=== PATIENT | female | born 1935 | race Caucasian/White ===

== ENCOUNTER 2017-10-15 09:58 | Observation (INO) | payer OTHER ==
[2017-10-15 10:26] LABS: BEDSIDE GLUCOSE 116 MG/DL (83-110)
[2017-10-15 11:21] LABS: BASO % 0.4 % (0.0-1.0); EOS # 0.1 10^3/uL (0.0-0.50); EOS % 1.2 % (0.0-3.0); HEMATOCRIT 40.2 % (36.0-47.0); HEMOGLOBIN 13.3 g/dl (12.0-15.5); IMMATURE GRANULOCYTE % 0.4 % (0-3.0); LYMPH % 19.1 % (24.0-44.0); MEAN CORPUSCULAR HGB CONC 33.1 g/dl (32.0-36.5); MEAN CORPUSCULAR VOLUME 90.7 fl (80.0-96.0); MONO # 0.7 10^3/uL (0.0-0.8); NEUTROPHILS # 3.4 10^3/uL (1.8-7.7); NEUTROPHILS % 65.9 % (36.0-66.0); PLATELET COUNT, AUTOMATED 216 10^3/uL (150-450); RED BLOOD COUNT 4.43 10^6/uL (4.00-5.40); RED CELL DISTRIBUTION WIDTH 15.1 % (11.5-14.5); WHITE BLOOD COUNT 5.2 10^3/uL (4.0-10.0)
[2017-10-15 11:42] LABS: ANION GAP 6 MEQ/L (8-16); BLOOD UREA NITROGEN 20 MG/DL (7-18); CARBON DIOXIDE LEVEL 27 MEQ/L (21-32); CHLORIDE LEVEL 108 MEQ/L (98-107); CPK CREATINE PHOSPHOKINASE 75 U/L (26-192); GLOMERULAR FILTRATION RATE 45.6 (>32); GLUCOSE, FASTING 113 MG/DL (70-100); MAGNESIUM LEVEL 2.1 MG/DL (1.8-2.4); POTASSIUM SERUM 4.2 MEQ/L (3.5-5.1); SODIUM LEVEL 141 MEQ/L (136-145); TROPONIN I < 0.02 NG/ML (< 0.10)
[2017-10-15 11:51] LABS: MB/CK RELATIVE INDEX 1.33 (< OR =4)
[2017-10-15 12:19] LABS: LACTIC ACID SEPSIS PROTOCOL 1.3 MMOL/L (0.4-2.0)
[2017-10-15] MEDS ORDERED: ONDANSETRON 4MG/2ML VIAL (J2405) IV (13:30)
[2017-10-15] MEDS ORDERED: ACETAMINOPHEN TAB 650MG DOSE (2X325MG) PO (13:30)
[2017-10-15] MEDS ORDERED: ATROPINE SULF 1MG/10ML SYRINGE (J0461) IV (14:45)
[2017-10-15 15:31] LABS: CPK CREATINE PHOSPHOKINASE 61 U/L (26-192); TROPONIN I < 0.02 NG/ML (< 0.10)
[2017-10-15 15:35] LABS: CK-MB VALUE MASS 1.1 NG/ML (<3.6)
[2017-10-15 15:37] LABS: FREE T3 2.5 PG/ML (2.2-4.0)
[2017-10-15 15:37] LABS: FREE T4 1.45 NG/DL (0.76-1.46)
[2017-10-15] MEDS: NS 1,000 ML IV (16:23)
[2017-10-15] MEDS: ALLOPURINOL 100 MG TAB PO (20:00)
[2017-10-15] MEDS: ASPIRIN 81 MG CHEW TABLET PO (20:00)
[2017-10-15] MEDS: hydrOXYzine 25 MG TAB PO (20:00)
[2017-10-15] MEDS: OMEPRAZOLE 20 MG CAP PO (20:00)
[2017-10-15] MEDS: HEPARIN SOD (PORCINE) 5000 UNITS/ML VIAL SC (20:01)
[2017-10-15 21:53] LABS: CPK CREATINE PHOSPHOKINASE 58 U/L (26-192); TROPONIN I < 0.02 NG/ML (< 0.10)
[2017-10-15 21:54] LABS: CK-MB VALUE MASS 1.2 NG/ML (<3.6); MB/CK RELATIVE INDEX 2.06 (< OR =4)
[2017-10-16] MEDS ORDERED: SLF 3 ML SYR IV (04:30)
[2017-10-16 05:58] LABS: HEMATOCRIT 36.8 % (36.0-47.0); HEMOGLOBIN 12.2 g/dl (12.0-15.5); MEAN CORPUSCULAR HGB CONC 33.2 g/dl (32.0-36.5); MEAN CORPUSCULAR VOLUME 90.4 fl (80.0-96.0); PLATELET COUNT, AUTOMATED 185 10^3/uL (150-450); RED BLOOD COUNT 4.07 10^6/uL (4.00-5.40); RED CELL DISTRIBUTION WIDTH 14.8 % (11.5-14.5); WHITE BLOOD COUNT 4.3 10^3/uL (4.0-10.0)
[2017-10-16] MEDS: LEVOTHYROXINE 75MCG TABLET (0.075MG) PO (06:03)
[2017-10-16] MEDS: SLF 3 ML SYR IV ×3 (06:03→20:05)
[2017-10-16 06:24] LABS: ALBUMIN 2.9 GM/DL (3.2-5.2); ALKALINE PHOSPHATASE 83 U/L (45-117); ALT/SGPT 16 U/L (12-78); ANION GAP 7 MEQ/L (8-16); AST/SGOT 16 U/L (7-37); BILIRUBIN,TOTAL 0.4 MG/DL (0.2-1.0); BLOOD UREA NITROGEN 19 MG/DL (7-18); CALCIUM LEVEL 8.1 MG/DL (8.8-10.2); CARBON DIOXIDE LEVEL 25 MEQ/L (21-32); CHLORIDE LEVEL 112 MEQ/L (98-107); CK-MB VALUE MASS < 1.0 NG/ML (<3.6); CPK CREATINE PHOSPHOKINASE 54 U/L (26-192); CREATININE FOR GFR 1.09 MG/DL (0.55-1.30); GLOMERULAR FILTRATION RATE 50.9 (>32); GLUCOSE, FASTING 103 MG/DL (70-100); MB/CK RELATIVE INDEX 1.85 (< OR =4); SODIUM LEVEL 144 MEQ/L (136-145); TOTAL PROTEIN 5.8 GM/DL (6.4-8.2); TROPONIN I < 0.02 NG/ML (< 0.10)
[2017-10-16] MEDS: HEPARIN SOD (PORCINE) 5000 UNITS/ML VIAL SC ×2 (08:26→20:03)
[2017-10-16] MEDS: amLODIPine 5 MG TAB PO ×2 (08:39→20:04)
[2017-10-16] MEDS: traMADol 50 MG TAB PO ×2 (08:43→18:23)
[2017-10-16] MEDS: RAMELTEON 8 MG TAB (ROZEREM) PO (20:03)
[2017-10-16] MEDS: ASPIRIN 81 MG CHEW TABLET PO (20:03)
[2017-10-16] MEDS: OMEPRAZOLE 20 MG CAP PO (20:03)
[2017-10-16] MEDS: ALLOPURINOL 100 MG TAB PO (20:03)
[2017-10-17] MEDS: LEVOTHYROXINE 75MCG TABLET (0.075MG) PO (05:32)
[2017-10-17] MEDS: SLF 3 ML SYR IV ×2 (05:33→13:58)
[2017-10-17 06:08] LABS: HEMOGLOBIN 12.4 g/dl (12.0-15.5); MEAN CORPUSCULAR HEMOGLOBIN 30.2 pg (27.0-33.0); MEAN CORPUSCULAR HGB CONC 33.5 g/dl (32.0-36.5); PLATELET COUNT, AUTOMATED 185 10^3/uL (150-450); RED BLOOD COUNT 4.11 10^6/uL (4.00-5.40); RED CELL DISTRIBUTION WIDTH 14.7 % (11.5-14.5); WHITE BLOOD COUNT 4.5 10^3/uL (4.0-10.0)
[2017-10-17 06:28] LABS: ALBUMIN 2.9 GM/DL (3.2-5.2); ALBUMIN/GLOBULIN RATIO 0.88 (1.00-1.93); ALKALINE PHOSPHATASE 83 U/L (45-117); ALT/SGPT 17 U/L (12-78); ANION GAP 6 MEQ/L (8-16); AST/SGOT 15 U/L (7-37); BILIRUBIN,TOTAL 0.5 MG/DL (0.2-1.0); BLOOD UREA NITROGEN 19 MG/DL (7-18); CALCIUM LEVEL 8.9 MG/DL (8.8-10.2); CARBON DIOXIDE LEVEL 28 MEQ/L (21-32); CHLORIDE LEVEL 109 MEQ/L (98-107); CREATININE FOR GFR 0.97 MG/DL (0.55-1.30); GLOMERULAR FILTRATION RATE 58.2 (>32); GLUCOSE, FASTING 105 MG/DL (70-100); POTASSIUM SERUM 4.2 MEQ/L (3.5-5.1); SODIUM LEVEL 143 MEQ/L (136-145); TOTAL PROTEIN 6.2 GM/DL (6.4-8.2)
[2017-10-17] MEDS: traMADol 50 MG TAB PO (09:51)
[2017-10-17] MEDS: HEPARIN SOD (PORCINE) 5000 UNITS/ML VIAL SC (09:52)
[2017-10-17] MEDS: amLODIPine 5 MG TAB PO (09:54)
[2017-10-17] MEDS ORDERED: ISOVUE-370 76% 100ML VIAL (Q9967) As Ordered (11:59)
== END 2017-10-17 15:26 | disposition home or self-care (01) ==
LOC: M MSPAV 10-16 14:40 → M ED 09:58 → M ED INP 13:16 → M PCU 15:31
DX: R55 Syncope and collapse (principal); E03.9 Hypothyroidism, unspecified; K21.9 Gastro-esophageal reflux disease without esophagitis; I73.9 Peripheral vascular disease, unspecified; I11.0 Hypertensive heart disease with heart failure; I50.30 Unspecified diastolic (congestive) heart failure; Z79.82 Long term (current) use of aspirin; Z79.899 Other long term (current) drug therapy; Z88.0 Allergy status to penicillin; Z88.8 Allergy status to other drugs, medicaments and biological substances; M10.9 Gout, unspecified; Z85.3 Personal history of malignant neoplasm of breast
CPT/HCPCS: Q9967

== ENCOUNTER 2019-02-02 10:42 | Observation (INO) | payer MEDICARE, OTHER ==
[~2019-02-02] VITALS: Ht 149.9 cm; Wt 71.3 kg
[~2019-02-02 10:42] MED LIST: ACET65TA OR; ALLO100T OR; ALLO100T PO; AMIT25TA10 PO; AMIT25TA2 OR; AMIT25TA2 PO; AMLO10TA OR; AMLO5TAB6 PO; AMRIX PO; ATARAX OR; BABY81CH OR; BABY81CH PO; CALCTAB22 PO; CEPACOL OR; COLC0.6T OR; DOXY-197 PO; EFFE75CA75 OR; FENT1DIS14 TD; FENT1DIS16 TD; FERR325T OR; FLEXERIL OR; FLON0.05; GABA300C2 PO; GLUC850T PO; HYDR-3363 PO; LEVO100T PO; LEVO250T PO; LEVO75TA34 PO; LEVO88TA4 OR; LIDO5DIS TD; METF500T4 OR; MILKSUS OR; MIRALEX OR; MOISTURIN CREAM TOP; MULTIVIT PO; NEUR600T OR; NORV5TAB OR; NYSTATIN ORAL PO; OMEP20TA7 OR; OMEP20TA7 PO; OXYC10TA97 OR; OXYC1TAB23 PO; PRAV40TA OR; PROT1TAB2 OR; SANC20TA OR; SIME80TA PO; SIMV40TA2 OR; SUCR1SUS PO; SUCR1TAB56 OR; SYNT88TA PO; TERA5CAP3 OR; TRAM50TA2 PO; TYLE325T5 PO; VAGIFEM PV; VESI5TAB PO; VESICARE PO; VICO5TAB OR; VICO5TAB16 PO; VIT D 2000 PO; VOLT1GEL EX; XANA0.25 OR; ZOCO40TA OR; [UNRECOGNIZED DRUG - CODE]; [UNRECOGNIZED DRUG - CODE] PO; antibiotic OR; mucinex PO; vagifem PV
[2019-02-02] MEDS ORDERED: MECLIZINE 25 MG TABLET PO ONE (11:30)
[2019-02-02 11:50] LABS: BASO % 0.2 % (0.0-1.0); EOS # 0.1 10^3/uL (0.0-0.5); EOS % 1.9 % (0.0-3.0); HEMATOCRIT 41.9 % (36.0-47.0); HEMOGLOBIN 12.9 g/dl (12.0-15.5); LYMPH # 1.1 10^3/uL (1.5-5.0); LYMPH % 26.9 % (24.0-44.0); MEAN CORPUSCULAR HEMOGLOBIN 26.7 pg (27.0-33.0); MEAN CORPUSCULAR HGB CONC 30.8 g/dl (32.0-36.5); MEAN CORPUSCULAR VOLUME 86.7 fl (80.0-96.0); MONO % 23.8 % (0.0-5.0); NEUTROPHILS % 46.7 % (36.0-66.0); PLATELET COUNT, AUTOMATED 176 10^3/uL (150-450); RED BLOOD COUNT 4.83 10^6/uL (4.00-5.40); WHITE BLOOD COUNT 4.2 10^3/uL (4.0-10.0)
[2019-02-02 12:11] LABS: ERYTHROCYTE SEDIMENTATION RATE 22 mm/hr (0-30)
[2019-02-02 12:29] LABS: ALBUMIN 3.5 GM/DL (3.2-5.2); ALT/SGPT 28 U/L (12-78); BILIRUBIN,DIRECT 0.2 MG/DL (0.0-0.2); BILIRUBIN,TOTAL 0.5 MG/DL (0.2-1.0); BLOOD UREA NITROGEN 12 MG/DL (7-18); C REACTIVE PROTEIN QUANTITATIV 0.32 MG/DL (0.00-0.30); CALCIUM LEVEL 9.2 MG/DL (8.8-10.2); CARBON DIOXIDE LEVEL 24 MEQ/L (21-32); CHLORIDE LEVEL 111 MEQ/L (98-107); CK-MB VALUE MASS 1.2 NG/ML (<3.6); CPK CREATINE PHOSPHOKINASE 51 U/L (26-192); CREATININE FOR GFR 1.04 MG/DL (0.55-1.30); GLOMERULAR FILTRATION RATE 53.6 (>32); GLUCOSE, FASTING 107 MG/DL (70-100); MB/CK RELATIVE INDEX 2.35 (< OR =4); POTASSIUM SERUM 4.7 MEQ/L (3.5-5.1); SODIUM LEVEL 141 MEQ/L (136-145); THYROID STIMULATING HORMONE 0.945 uIU/ML (0.358-3.740); TROPONIN I < 0.02 NG/ML (< 0.10)
--- NOTE | 2019-02-02 12:30 | REP ---
CT BRAIN WITHOUT CONTRAST: 02/02/2019. Comparison: 10/15/2017. Clinical history: Altered mental status. Findings: Lateral ventricles are midline symmetric and dilated in proportion to the diffuse cerebral atrophy. That atrophy is mild to moderate but appropriate for age. The. Findings unchanged over the past year. Basal ganglia symmetric. There is heterogeneous low attenuation white matter change bilaterally suggesting chronic small vessel white matter ischemic disease. Third and fourth ventricles unremarkable. Atrophy greatest in the temporal and frontal lobes. No acute infarct, intracranial hemorrhage, mass, mass effect or extra-axial fluid collection. Brainstem was intact. Cerebellum shows symmetric atrophy but no posterior fossa hemorrhage. There is heavy vascular calcification of the carotid siphons. Mastoids and visualized sinuses are without acute finding. The skull base and calvarium show no fracture or focal lesion. Impression: 1. Moderate diffuse atrophy with proportionate ventriculomegaly, age appropriate and stable. 2. No acute infarct, intracranial hemorrhage, mass or mass effect. There are chronic small vessel white matter ischemic changes present. 3. No sinus or mastoid abnormality and no fracture or focal lesion of the skull base or calvarium. Electronically Signed by Kyler Laguerre MD 02/02/2019 07:03 P
--- NOTE | 2019-02-02 13:45 | REP ---
AP PORTABLE CHEST: 02/02/2019. Clinical history: Altered mental status. Comparison: 10/15/2017. Findings: The lung horowitz are well inflated and without pleural effusion or acute infiltrate. There is no pleural thickening apical scarring. There are axillary surgical clips from prior left mastectomy. There is a large hiatal hernia projecting posterior to the heart shadow. The heart is mildly prominent. There is no vascular redistribution or edema. The aorta is calcified at the arch but without aneurysm. Airway intact. Bones demineralized. Evidence of prior shoulder surgery on the left with two anchors seen in the humeral head. Impression: 1. Cardiomegaly without pulmonary edema, effusion or acute infiltrate. 2. Large hiatal hernia. 3. No acute infiltrate or effusion. 4. Left mastectomy and axillary lymph node dissection noted. Bones demineralized. Electronically Signed by Kyler Laguerre MD 02/02/2019 07:05 P
[2019-02-02] MEDS ORDERED: MULTCAP PO (16:29)
[2019-02-02] MEDS ORDERED: SUCR1TAB56 PO (16:29)
[2019-02-02] MEDS ORDERED: AMLO5TAB6 PO (16:29)
[2019-02-02] MEDS ORDERED: FERR325T3 PO (16:29)
[2019-02-02] MEDS ORDERED: PRAV80TA2 PO (16:29)
[2019-02-02] MEDS ORDERED: UNIT1TAB PO (16:29)
[2019-02-02] MEDS ORDERED: ZYLO300T6 PO (16:29)
[2019-02-02] MEDS ORDERED: OMEP20.6 PO (16:29)
[2019-02-02] MEDS ORDERED: ASPI81TA85 PO (16:29)
[2019-02-02] MEDS ORDERED: QC A650T3 PO (16:37)
[2019-02-02] MEDS ORDERED: ALLO100T PO (16:39)
[2019-02-02] MEDS ORDERED: SUCRALFATE 1 GM TAB PO PRN (17:00)
--- NOTE | 2019-02-02 17:03 | HPEPDOC ---
General Date of Admission Feb 02, 2019 at 10:43 Date of Service: Feb 02, 2019 Chief Complaint The patient is a 83-year-old female Who presented to the emergency room with complaints of lightheadedness. History of Present Illness Patient is an 83-year-old female with a PMHx of CAD s/p stent, Carotid artery stenosis s/p stent (patient unsure of location), Renal artery stenosis s/p stent, Hypothyroidism, Gout, Breast CA s/p L mastectomy, GERD who presented to the emergency room after experiencing lightheadedness. Patient reported that 5 days ago she was walking within her house and experienced the sudden onset of sharp pain extending from her left jaw up into her ear that lasted a few seconds, but she rated as a 20/10, electric/sharp pain. Patient reported that she felt dizzy since that point. She described the dizziness as a feeling of passing out and not a feeling of the room spinning. Patient reported that she sat in a chair most of the day with the symptoms of light-headedness. She has come to the ER after 5 days because she was concerned it did not resolve. Currently patient denies any difficulty with chewing, swallowing her tongue movement. She denies any visual problems. Denies any hearing loss. Patient denies nausea, vomiting, chest pain, shortness breath, palpitations, abdominal pain, diarrhea, or urinary discomfort. Patient does report constipation. However, she has had a bowel movement today. She denies any fevers or chills over the last 2 weeks. Patient denies any significant change in her appetite or weight. Home Medications Scheduled Allopurinol (Allopurinol) 100 Mg Tablet, 100 MG PO QHS, (Reported) PT FAMILY TO VERIFY DOSE. PT MED LIST STATES 300MG. PHARMACY IS FILLING 100MG Amlodipine Besylate (Amlodipine Besylate) 5 Mg Tablet, 5 MG PO QHS, (Reported) Aspirin (Aspir 81) 81 Mg Tablet.dr, 81 MG PO QHS, (Reported) Ferrous Sulfate (Ferrous Sulfate) 325 Mg Tablet.dr, 325 MG PO QHS, (Reported) Levothyroxine Sodium (Unithroid) 75 Mcg Tablet, 75 MCG PO QAM, (Reported) Multivitamin (Multivitamins) 1 Each Capsule, 1 CAP PO QHS, (Reported) Omeprazole Magnesium (Omeprazole Magnesium) 20 Mg Capsule.dr, 20 MG PO QHS, (Reported) Pravastatin Sodium (Pravastatin Sodium) 80 Mg Tablet, 80 MG PO QHS, (Reported) Scheduled PRN Acetaminophen (Acetaminophen 8 Hour) 650 Mg Tablet.er, 1,300 MG PO Q8H PRN for PAIN, (Reported) Sucralfate (Sucralfate) 1 Gm Tablet, 1 GM PO DAILY PRN for LEAKY GUT, (Reported) ONLY USES WHEN EATING "BAD" FOOD Allergies Coded Allergies: butorphanol (Verified Allergy, Severe, DYSPNEA, 02/02/19) hydralazine (Verified Allergy, Severe, DYSPNEA, 02/02/19) pentazocine (Verified Allergy, Severe, RASH,DYSPNEA, 02/02/19) Penicillins (Verified Allergy, Intermediate, RASH, 02/02/19) Sulfa (Sulfonamide Antibiotics) (Verified Allergy, Intermediate, RASH, 02/02/19) codeine (Verified Allergy, Intermediate, PRURITIS, HALLUCINATIONS, 02/02/19) lisinopril (Verified Allergy, Intermediate, INCREASED K, 02/02/19) meperidine (Verified Allergy, Intermediate, RASH, 02/02/19) morphine (Verified Allergy, Intermediate, PRURITIS, 02/02/19) atorvastatin (Verified Adverse Reaction, Severe, RHABDOMYOLYSIS, 02/02/19) hydrochlorothiazide (Verified Adverse Reaction, Intermediate, INCREASED K WITH LISINOPRIL, 02/02/19) clonidine (Verified Adverse Reaction, Mild, DRY MOUTH, 02/02/19) Past Medical History Medical History CAD s/p stent, Carotid artery stenosis s/p stent (patient unsure of location), Renal artery stenosis s/p stent, Hypothyroidism, Gout, Breast CA s/p L mastectomy, GERD Surgical History Partial colonic resection for diverticular disease Left-sided mastectomy Cataract extraction Renal artery stent placement Cardiac stent placement Bilateral knee arthroplasty Appendectomy Cholecystectomy Family History - Family history was reviewed and is currently noncontributory to the current ho spitalization Social History - Denies the use of alcohol or illicit drugs; quit smoking 35 years ago - Denies recent travel or sick contacts - Lives with daughter and son in law - Occupation; retired nurse Review of Systems Other systems 10 point review of systems complete, all negative otherwise stated in HPI Vital Signs - Vitals: BP 165/70, HR 102, RR 20, Sat 98%RA, Temp 98.5F - General: Lying in bed, No acute distress, Speaking in full sentences, AAOx3 - HEENT: NC, AT, PERRLA - CVS: RRR, +S1S2, - Murmurs / rubs / gallops - Lungs: Fair air entry bilaterally, No appreciable wheezing / rales / rhonchi - Abdomen: Soft, Non-distended, Non-tender - Extremities: No lower extremity edema, No calf tenderness - Neuro: No focal motor or sensory deficit; strength noted at 5/5 at upper and lower extremities bilaterally; cranial nerves II through XII were grossly intact - Skin: No visible rashes Laboratory Data Labs 24H Laboratory Tests 2 02/02/19 11:27: Urine Color STRAW, Urine Appearance CLEAR, Urine pH 6.0, Urine Specific [place] 1.005, Urine Protein NEGATIVE, Urine Glucose (UA) NEGATIVE, Urine Ketones NEGATIVE, Urine Blood NEGATIVE, Urine Nitrite NEGATIVE, Urine Bilirubin NEGATIVE, Urine Urobilinogen 0.2, Urine Leukocyte Esterase NEGATIVE, Urine WBC (Auto) 0, Urine RBC (Auto) 1, Urine Hyaline Casts (Auto) 0, Urine Bacteria (Auto) NEGATIVE, Urine Squamous Epithelial Cells 0, Urine Sperm (Auto) 02/02/19 11:37: Immature Granulocyte % (Auto) 0.5, White Blood Count 4.2, Red Blood Count 4.83, Hemoglobin 12.9, Hematocrit 41.9, Mean Corpuscular Volume 86.7, Mean Corpuscular Hemoglobin 26.7L, Mean Corpuscular Hemoglobin Concent 30.8L, Red Cell Distribution Width 25.2H, Platelet Count 176, Neutrophils (%) (Auto) 46.7, Lymphocytes (%) (Auto) 26.9, Monocytes (%) (Auto) 23.8H, Eosinophils (%) (Auto) 1.9, Basophils (%) (Auto) 0.2, Neutrophils # (Auto) 2.0, Lymphocytes # (Auto) 1.1L, Monocytes # (Auto) 1.0H, Eosinophils # (Auto) 0.1, Basophils # (Auto) 0.0, Nucleated Red Blood Cells % (auto) 0.0, Erythrocyte Sedimentation Rate 22, Anion Gap 6L, Glomerular Filtration Rate 53.6, Calcium Level 9.2, Aspartate Amino Transf (AST/SGOT) 30, Alanine Aminotransferase (ALT/SGPT) 28, Alkaline Phosphatase 106, Total Bilirubin 0.5, Direct Bilirubin 0.2, Total Creatine Kinase 51, Creatine Kinase MB 1.2, Creatine Kinase MB Relative Index 2.35, Troponin I < 0.02, C-Reactive Protein, Quantitative 0.32H, Total Protein 7.0, Albumin 3.5, Albumin/Globulin Ratio 1.00, Thyroid Stimulating Hormone (TSH) 0.945 CBC/BMP Laboratory Tests 02/02/19 11:37 Red Blood Count 4.83, Mean Corpuscular Volume 86.7, Mean Corpuscular Hemoglobin 26.7 L, Mean Corpuscular Hemoglobin Concent 30.8 L, Red Cell Distribution Width 25.2 H, Neutrophils (%) (Auto) 46.7, Lymphocytes (%) (Auto) 26.9, Monocytes (%) (Auto) 23.8 H, Eosinophils (%) (Auto) 1.9, Basophils (%) (Auto) 0.2, Neutrophils # (Auto) 2.0, Lymphocytes # (Auto) 1.1 L, Monocytes # (Auto) 1.0 H, Eosinophils # (Auto) 0.1, Basophils # (Auto) 0.0 Microbiology Microbiology 02/02/19 Gastrointestinal Tract Panel (PCR) - Final, Complete Plan / VTE VTE Prophylaxis Ordered?: Yes Plan Plan Light-headedness - possibly 2/2 vascular etiology, less likely 2/2 orthostatic hypotension - Patient describes symptoms of lightheadedness; she describes as feeling of passing out, denies any room spinning - Patient began to experience these symptoms 5 days ago after she experienced sharp pain in her jaw - Currently, patient remains hemodynamically stable and afebrile - Orthostatic vital signs in the emergency room were negative - Lab work is without any significant findings; ESR not significantly elevated; CRP mildly elevated - CT head 02/02: 1. Moderate diffuse atrophy with proportionate ventriculomegaly, age appropriate and stable. 2. No acute infarct, intracranial hemorrhage, mass or mass effect. There are chronic small vessel white matter ischemic changes present. 3. No sinus or mastoid abnormality and no fracture or focal lesion of the skull base or calvarium. - CXR 02/02: 1. Cardiomegaly without pulmonary edema, effusion or acute infiltrate. 2. Large hiatal hernia. 3. No acute infiltrate or effusion. 4. Left mastectomy and axillary lymph node dissection noted. Bones demineralized. - We will get MRI/MRA brain and MRA, carotid for further evaluation - c/w Telemetry monitoring - Will order PT / OT to start tomorrow AM CAD s/p stent - c/w ASA Carotid artery stenosis s/p stent (patient unsure of location) - c/w ASA Renal artery stenosis s/p stent - c/w ASA DLP - c/w Pravastatin Hypothyroidism - c/w Levothyroxine Gout - c/w Allopurinol Breast CA s/p L mastectomy GERD - c/w Omeprazole and Sucralfate DVT prophylaxis - Will start TEDs / Sequentials IRIS NEGRON MD Feb 02, 2019 17:03
[2019-02-02 18:58] VITALS: BP 147/66
--- NOTE | 2019-02-02 19:14 | REPVR ---
PROCEDURE INFORMATION: Exam: MR Angiogram Head Without Contrast, Arteries Exam date and time: 02/02/2019 4:19 PM Clinical history: 83 years old, female; Other: Lightheaded, vasculopathy; Additional info: Light headedness / vasculopathy TECHNIQUE: Imaging protocol: MR angiogram head without contrast. Exam focused on the arteries. 3D rendering: MIP reconstructed images were created and reviewed. COMPARISON: CT Head without contrast 02/02/2019 10:56 AM MRI-Brain without Contrast 02/02/2019 5:32:35 PM FINDINGS: Right internal carotid artery: Unremarkable. Intracranial segment is patent with no significant stenosis. No aneurysm. Right anterior cerebral artery: Patent. The right A1 is developmentally hypoplastic. Right middle cerebral artery: Unremarkable. No occlusion or significant stenosis. No aneurysm. Right posterior cerebral artery: Unremarkable. No occlusion or significant stenosis. No aneurysm. Right vertebral artery: The right vertebral artery is dominant. Patent. Left internal carotid artery: Patent. A tiny 1-2 mm laterally directed outpouching from the paraclinoid left ICA, potentially a tiny aneurysm, image 65 series 301. Left anterior cerebral artery: Unremarkable. No occlusion or significant stenosis. No aneurysm. Left middle cerebral artery: Unremarkable. No occlusion or significant stenosis. No aneurysm. Left posterior cerebral artery: Unremarkable. No occlusion or significant stenosis. No aneurysm. Left vertebral artery: The left vertebral artery is developmentally hypoplastic. Patent. Basilar artery: Unremarkable. No occlusion or significant stenosis. No aneurysm. Brain: The brain is evaluated separately on a dedicated exam. IMPRESSION: 1. No major proximal vessel branch occlusion seen. 2. There may be a tiny 1-2 mm left paraclinoid ICA aneurysm. Electronically signed by: Mary Jhaveri On 02/02/2019 19:13:39 PM
--- NOTE | 2019-02-02 19:37 | REPVR ---
PROCEDURE INFORMATION: Exam: MR Head Without Contrast Exam date and time: 02/02/2019 6:25 PM Clinical history: 83 years old, female; Other: Light headedness / vasculopathy TECHNIQUE: Imaging protocol: MR of the head without contrast. COMPARISON: CT Head without contrast 02/02/2019 10:56 AM FINDINGS: Brain: No acute infarct identified on the diffusion weighted imaging. 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 The brain demonstrates generalized volume loss. Mild patchy increased signal intensity in the deep white matter on the T2 weighted imaging most likely representing chronic small vessel ischemic change. There is a focal, chronic lacunar infarct in the left internal capsule. Ventricles: The ventricles are mildly enlarged likely reflecting volume loss. Bones/joints: The upper cervical spine is incidentally visualized on the sagittal T1 sequence. Disc height loss and spondylosis at C4-5 where there is grade 1 degenerative anterolisthesis; severe left C4-5 facet arthropathy. Soft tissues: Unremarkable. Sinuses: Mild ethmoid mucosal thickening. Mastoid air cells: Normal as visualized. No significant mastoid effusion. Orbits: Thinning of the lenses of the globes consistent with prior lens surgery. IMPRESSION: 1. No acute intracranial abnormality seen. 2. 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 Electronically signed by: Mary Jhaveri On 02/02/2019 19:37:14 PM
--- NOTE | 2019-02-02 19:49 | REPVR ---
PROCEDURE INFORMATION: Exam: MR Angiography Neck Without Contrast Exam date and time: 02/02/2019 6:26 PM Clinical history: 83 years old, female; Other: Light headedness / vasculopathy TECHNIQUE: Imaging protocol: Magnetic resonance angiography of the neck without contrast. 3D rendering: MIP reconstructed images were created and reviewed. COMPARISON: US Duplex,carotid (complete) 10/15/2017 2:11 PM FINDINGS: Right common carotid artery: Unremarkable. No stenosis. No dissection or occlusion. Right internal carotid artery: Right carotid bulb atherosclerotic plaque causing moderate, approximate 40% stenosis. Right external carotid artery: Unremarkable. No stenosis. No dissection or occlusion of the origin. Right vertebral artery: Right vertebral artery is dominant. Patent. Limited assessment of the origin due to motion artifact. Left common carotid artery: This is seen for example around axial image 66 of series 1101, appearance of a crescentic focal filling defect in the distal aspect of the left common carotid artery causing mild, approximate 30% stenosis. This does extend into the left external carotid artery causing near occlusion at the origin. Left internal carotid artery: Unremarkable extracranial segment. No stenosis. No dissection or occlusion. Left external carotid artery: See Left Common Carotid Artery Finding. Left vertebral artery: The left vertebral artery is developmentally hypoplastic. Patent. Limited assessment of the origin due to motion artifact. IMPRESSION: 1. Focal atherosclerotic versus thrombotic versus embolic mild stenosis of the distal left common carotid artery. The filling defect does extend into the origin of the left external carotid artery causing near occlusion. CTA of the neck could be obtained for further characterization. 2. Right carotid bulb atherosclerotic plaque causing moderate approximate 40% stenosis. COMMENT: Reference per NASCET criteria for degree of stenosis: Mild: less than 50% stenosis. Moderate: 50-69% stenosis. Severe: 70-94% stenosis. Near occlusion: 95-99% stenosis. Electronically signed by: Mary Jhaveri On 02/02/2019 19:48:57 PM
[2019-02-02 20:00] VITALS: BP 164/72
[2019-02-02] MEDS: ASPIRIN 81 MG ENTERIC TAB PO SCH (21:07)
[2019-02-02] MEDS: PRAVASTATIN 20 MG TAB PO SCH (21:07)
[2019-02-02] MEDS: amLODIPine 5 MG TAB PO SCH (21:07)
[2019-02-02] MEDS: FERROUS SULFATE 325MG TAB PO SCH (21:07)
[2019-02-02] MEDS: OMEPRAZOLE 20 MG CAP PO SCH (21:08)
[2019-02-02] MEDS: allopurinoL 100 MG TAB PO SCH (21:08)
[2019-02-02] MEDS: MULTIVITAMINS/MINERALS THERAP 1 TAB PO SCH (21:08)
[2019-02-03] VITALS (8 sets, daily range): BP systolic 125–150; BP diastolic 58–65
[2019-02-03] MEDS: LEVOTHYROXINE 75MCG TABLET (0.075MG) PO SCH (05:28)
--- NOTE | 2019-02-03 08:25 | ECGEPIP ---
[facility] - ED Test Date: 2019-02-02 Pat Name: JOSHUA BUTLER Department: Room: - Gender: Female Sales Administrator: MERARY : [id number] Requested By: YUNIOR Velez Order Number: [id number] Reading MD: Adeola Fenton Measurements Intervals [place] Rate: 56 P: -76 VT: 105 QRS: 51 QRSD: 79 T: 71 QT: 416 QTc: 401 Interpretive Statements JUNCTIONAL BRADYCARDIA ABNORMAL RHYTHM ECG 10/16/17 SINUS BRADYCARDIA Electronically Signed on 02-03-2019 8:24:56 EDT by Adeola Fenton
--- NOTE | 2019-02-03 12:07 | CR.PDOC ---
General Date of Consultation: Feb 03, [address] Onofre HPI: 83year oldF with a past medical history significant for carotid stenosis, pt states h/o carotid stent. The pt had presented to the emergency room 02/02/19 after experiencing lightheadedness. She reports that about 5 days ago she was walking within her house and experienced the sudden onset of sharp pain extending from her left jaw up into her ear that lasted a few seconds, describes as sharp pain. States she also felt lightheaded and off balance sensation at that time. Pt denies vertigo. She states her symptoms did not resolve so she came to the ED for evaluation. Vascular Surgery is consulted re carotid stenosis. She denies any visual problems, amaurosis. Denies weakness, numbness, tingling in UE/LE. Denies any fevers, chills, weakness, fatigue, Headache, Chest Pain, Shortness of breath, cough, palpitations, abdominal pain, N/V/D or changes in bowel or blad ottoniel habits. Medical History CAD s/p stent, Carotid artery stenosis s/p stent (patient unsure of location), Renal artery stenosis s/p stent, Hypothyroidism, Gout, Breast CA s/p L mastectomy, GERD Surgical History Partial colonic resection for diverticular disease Left-sided mastectomy Cataract extraction Renal artery stent placement Cardiac stent placement Bilateral knee arthroplasty Appendectomy Cholecystectomy SOCHX: Employment: retired nurse Tobacco use: denies ETOH: denies ROS: As noted in HPI, otherwise 11pt ROS of systems reviewed and unremarkable. PE: GEN: 83yoF, appears stated age. Well-nourished, well developed. No acute distress. Alert and oriented x 3. Pleasant, interactive. HEENT: Normocephalic, atraumatic. Extraocular movements are intact. No nystagmus appreciated. Sclera are nonicteric. Conjunctiva without injection. No facial asymmetry. Moist mucous membranes. CHEST: Regular rate and rhythm, +S1, +S2. No bruits noted, no surgical scars on neck noted. LUNGS: Clear to auscultation bilaterally. No wheezes, rales, or rhonchi. Breathing appears symmetric and easy. ABD: Round, soft, non-tender, non-distended. +Bowel sounds throughout. EXT: No lower extremity edema appreciated. SKIN: Stoy, dry, warm. No rashes. NEURO: Alert and oriented x 3. Cranial nerves III-XII are intact. No focal deficits appreciated. MRA carotid IMPRESSION: 1. Focal atherosclerotic versus thrombotic versus embolic mild stenosis of the distal left common carotid artery. The filling defect does extend into the origin of the left external carotid artery causing near occlusion. CTA of the neck could be obtained for further characterization. 2. Right carotid bulb atherosclerotic plaque causing moderate approximate 40% stenosis. COMMENT: Reference per NASCET criteria for degree of stenosis: Mild: less than 50% stenosis. Moderate: 50-69% stenosis. Severe: 70-94% stenosis. Near occlusion: 95-99% stenosis. Electronically signed by: Mary Jhaveri On 02/02/2019 19:48:57 PM A&P: 1. Carotid stenosis. Pt reports h/o carotid stent. Pt reports recent episode of jaw pain and dysequillibrium. MRA carotid is reviewed by Dr Onofre, imaging with motion artifact. Would recommend Carotid US to further asses and pending results possibly cons ider CTA neck to further asses. Pt on ASA 81 mg/Statin. Vital Signs/I&O Vital Signs Date Time Temp Pulse Resp B/P (MAP) Pulse Ox O2 Delivery O2 Flow Rate FiO2 02/03/19 08:00 97.2 60 18 148/65 (92) 99 02/02/19 18:30 Room Air I&O- Last 24 Hours up to 6 AM 02/03/19 06:00 Intake Total 500 ml Output Total 0 ml Balance 500 ml Laboratory Data Microbiology Microbiology 02/02/19 Gastrointestinal Tract Panel (PCR) - Final, Complete Allergies Coded Allergies: butorphanol (Verified Allergy, Severe, DYSPNEA, 02/02/19) hydralazine (Verified Allergy, Severe, DYSPNEA, 02/02/19) pentazocine (Verified Allergy, Severe, RASH,DYSPNEA, 02/02/19) Penicillins (Verified Allergy, Intermediate, RASH, 02/02/19) Sulfa (Sulfonamide Antibiotics) (Verified Allergy, Intermediate, RASH, 02/02/19) codeine (Verified Allergy, Intermediate, PRURITIS, HALLUCINATIONS, 02/02/19) lisinopril (Verified Allergy, Intermediate, INCREASED K, 02/02/19) meperidine (Verified Allergy, Intermediate, RASH, 02/02/19) morphine (Verified Allergy, Intermediate, PRURITIS, 02/02/19) atorvastatin (Verified Adverse Reaction, Severe, RHABDOMYOLYSIS, 02/02/19) hydrochlorothiazide (Verified Adverse Reaction, Intermediate, INCREASED K WITH LISINOPRIL, 02/02/19) clonidine (Verified Adverse Reaction, Mild, DRY MOUTH, 02/02/19) Home Medications Scheduled Allopurinol (Allopurinol) 100 Mg Tablet, 100 MG PO QHS, (Reported) Amlodipine Besylate (Amlodipine Besylate) 5 Mg Tablet, 5 MG PO QHS, (Reported) Aspirin (Aspir 81) 81 Mg Tablet.dr, 81 MG PO QHS, (Reported) Ferrous Sulfate (Ferrous Sulfate) 325 Mg Tablet.dr, 325 MG PO QHS, (Reported) Levothyroxine Sodium (Unithroid) 75 Mcg Tablet, 75 MCG PO QAM, (Reported) Multivitamin (Multivitamins) 1 Each Capsule, 1 CAP PO QHS, (Reported) Omeprazole Magnesium (Omeprazole Magnesium) 20 Mg Capsule.dr, 20 MG PO QHS, (Reported) Pravastatin Sodium (Pravastatin Sodium) 80 Mg Tablet, 80 MG PO QHS, (Reported) Scheduled PRN Acetaminophen (Acetaminophen 8 Hour) 650 Mg Tablet.er, 1,300 MG PO Q8H PRN for PAIN, (Reported) Sucralfate (Sucralfate) 1 Gm Tablet, 1 GM PO DAILY PRN for LEAKY GUT, (Reported) ONLY USES WHEN EATING "BAD" FOOD Le Bravo Feb 03, 2019 12:07
--- NOTE | 2019-02-03 14:55 | IPNPDOC ---
Text Note Date of Service The patient was seen on 02/03/19. NOTE Subjective: Patient is an 83-year-old female with a PMHx of CAD s/p stent, Carotid artery stenosis s/p stent (patient unsure of location), Renal artery stenosis s/p stent, Hypothyroidism, Gout, Breast CA s/p L mastectomy, GERD who presented to the emergency room after experiencing lightheadedness. Patient reported that 5 days ago she was walking within her house and experienced the sudden onset of sharp pain extending from her left jaw up into her ear that lasted a few seconds, but she rated as a 20/10, electric/sharp pain. Patient reported that she felt dizzy since that point. She described the dizziness as a feeling of passing out and not a feeling of the room spinning. Patient reported that she sat in a chair most of the day with the symptoms of light-headedness. She has come to the ER after 5 days because she was concerned it did not resolve. Patient was admitted to hospitalist service for further evaluation and treatment. Patient was seen and examined at the bedside. Currently patient reports that she still expressing some dizziness/lightheadedness. She denies chest pain, shortness breath, palpitations. Denies nausea, vomiting, abdominal pain or diarrhea. Objective: Vitals (See below) General: Lying in bed, no acute distress, comfortable, AAOx3 HEENT: NC, AT CVS: RRR, +S1S2 Lungs: Fair air entry b/l, no appreciable wheezing, rhonchi or rales Abdomen: Soft, ND, NT Extremities: - Edema, - Calf tenderness Imaging: - CT head 02/02: 1. Moderate diffuse atrophy with proportionate ventriculomegaly, age appropriate and stable. 2. No acute infarct, intracranial hemorrhage, mass or mass effect. There are chronic small vessel white matter ischemic changes present. 3. No sinus or mastoid abnormality and no fracture or focal lesion of the skull base or calvarium. - CXR 02/02: 1. Cardiomegaly without pulmonary edema, effusion or acute infiltrate. 2. Large hiatal hernia. 3. No acute infiltrate or effusion. 4. Left mastectomy and axillary lymph node dissection noted. Bones demineralized. - MRA Carotid 02/02: 1. Focal atherosclerotic versus thrombotic versus embolic mi ld stenosis of the distal left common carotid artery. The filling defect does extend into the origin of the left external carotid artery causing near occlusion. CTA of the neck could be obtained for further characterization. 2. Right carotid bulb atherosclerotic plaque causing moderate approximate 40% stenosis. - MRA Brain 02/02: 1. No major proximal vessel branch occlusion seen. 2. There may be a tiny 1-2 mm left paraclinoid ICA aneurysm. - MRI Brain 02/02: 1. No acute intracranial abnormality seen. 2. 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 Assessment and plan: Light-headedness - possibly 2/2 vascular etiology, less likely 2/2 orthostatic hypotension - Patient describes symptoms of lightheadedness; continues to experience mild symptoms - Patient began to experience these symptoms 5 days ago after she experienced sharp pain in her jaw - Remains hemodynamically stable and afebrile, Orthostatic vital signs negative - Lab work is without any significant findings; ESR not significantly elevated; CRP mildly elevated - Imaging above noted - Case discussed with Vascular surgery, Dr. Onofre; appreciate their input; will get carotid duplex US - c/w telemetry monitoring - Has cleared PT / OT CAD s/p stent - c/w ASA Carotid artery stenosis s/p stent (patient unsure of location) - c/w ASA Renal artery stenosis s/p stent - c/w ASA DLP - c/w Pravastatin Hypothyroidism - c/w Levothyroxine Gout - c/w Allopurinol Breast CA s/p L mastectomy GERD - c/w Omeprazole and Sucralfate DVT prophylaxis - c/w TEDs / Sequentials Disposition: - Anticipate discharge within 24-48 hours VS,Fishbone, I+O VS, Fishbone, I+O Vital Signs Date Time Temp Pulse Resp B/P (MAP) Pulse Ox O2 Delivery O2 Flow Rate FiO2 02/03/19 12:00 97.8 67 18 125/60 (81) 99 02/02/19 18:30 Room Air I&O- Last 24 Hours up to 6 AM 02/03/19 06:00 Intake Total 500 ml Output Total 0 ml Balance 500 ml IRIS NEGRON MD Feb 03, 2019 14:55
--- NOTE | 2019-02-03 16:45 | REP ---
Bilateral carotid artery duplex ultrasound: Peak flow velocity analysis: RIGHT LEFT ICA Peak flow velocity cm/sec 83.3 95.2 ICA Diastolic flow velocity cm/sec 8.7 17.2 ICA/CCA Ratio 1.4 0.9 ECA Peak flow velocity cm/sec 47.1 116.5 CCA Peak flow velocity cm/sec 58.9 101.1 Comparison is 10/15/2017. At the time of the comparison study. The the patient indicated that he had had a stent placed on the left proximally 4 years prior to the previous study. There is diffuse atheromatous plaque bilaterally. Acoustic shadowing arising from the plaque in the right bulb obscures visualization of the right bulb. In addition, the study is technically difficult because of high bifurcations bilaterally. The left distal ICA could not be visualized. There is limited visualization of the left ECA. The peak flow velocities are normal bilaterally within the visualized vessels . This suggests there is less than 50% narrowing bilaterally. There is no significant stenosis by ultrasound. However, there are significant ultrasound limitations as described. Depending on symptomatology consider CTA for further evaluation. There is antegrade flow in the vertebral arteries bilaterally . Electronically Signed by Alexis Gardner MD 02/03/2019 04:36 P
--- NOTE | 2019-02-03 19:39 | IPNPDOC ---
Date Seen The patient was seen on 02/03/19. Progress Note Pt seen and examined. Please see Le Bernal's note for full consultation. Pt is doing well, denies any ongoing jaw pain, or dizziness/light-headedness. She is actually curious when she can go home. We had a discussion about polka bands and all of her children after I saw the tattoos she got on her forearms at 78 years old. I did a quick exam, and she is A&Ox3, no carotid bruit ausculatated, currently has no jaw tenderness to palpation, no CN deficits, MAEE and no focal deficits noted BUE/BLE. I have reviewed her MRA neck and carotid duplex. The pt has a focal area of plaque at the carotid bulb extending across but not occluding the origin of the R ICA. On duplex US, this appears to be heterogenous plaque, no ulcerations noted. No flow limitation or elevated velocities noted at the proximal ICA. Since her symptoms included left jaw pain and dizziness, I think this carotid finding is incidental. Plan: She is on ASA and statin, and would recommend adding plavix if she can tolerate it. I would like to see her back in clinic in 6 months for a follow up carotid duplex. The patient and I had a long discussion about carotid disease, surgical indications, best medical management, and she is agreeable to plan for best medical management. She was thoroughly counseled and all questions were answered. VS, I&O, 24H, Fishbone Vital Signs/I&O Vital Signs Date Time Temp Pulse Resp B/P (MAP) Pulse Ox O2 Delivery O2 Flow Rate FiO2 02/03/19 16:00 97.6 68 18 128/58 (81) 99 02/02/19 18:30 Room Air I&O- Last 24 Hours up to 6 AM 02/03/19 06:00 Intake Total 500 ml Output Total 0 ml Balance 500 ml Laboratory Data Microbiology Microbiology 02/02/19 Gastrointestinal Tract Panel (PCR) - Final, Complete DEBORA THOMAS MD Feb 03, 2019 19:39
[2019-02-03] MEDS: OMEPRAZOLE 20 MG CAP PO SCH (20:25)
[2019-02-03] MEDS: PRAVASTATIN 20 MG TAB PO SCH (20:25)
[2019-02-03] MEDS: ASPIRIN 81 MG ENTERIC TAB PO SCH (20:26)
[2019-02-03] MEDS: MULTIVITAMINS/MINERALS THERAP 1 TAB PO SCH (20:26)
[2019-02-03] MEDS: FERROUS SULFATE 325MG TAB PO SCH (20:26)
[2019-02-03] MEDS: allopurinoL 100 MG TAB PO SCH (20:26)
[2019-02-03] MEDS: amLODIPine 5 MG TAB PO SCH (20:29)
[2019-02-03] MEDS ORDERED: ACETAMINOPHEN 650MG ER TAB (TYLENOL ARTHRITIS) PO PRN (21:15)
[2019-02-04 04:00] VITALS: BP 134/59
[2019-02-04] MEDS: LEVOTHYROXINE 75MCG TABLET (0.075MG) PO SCH (05:27)
[2019-02-04 08:00] VITALS: BP 146/67
[2019-02-04] MEDS ORDERED: PROT20TA11 PO (08:09)
[2019-02-04] MEDS ORDERED: PLAV1TAB2 PO (08:09)
--- NOTE | 2019-02-04 11:16 | DS.PDOC ---
Discharge Summary General Date of Admission Feb 02, 2019 at 10:43 Date of Discharge 02/04/2019 Discharge Summary PROCEDURES PERFORMED DURING STAY: [None]. ADMITTING DIAGNOSES / DISCHARGE DIAGNOSES: Light-headedness - possibly 2/2 vascular etiology, less likely 2/2 orthostatic hypotension CAD s/p stent Carotid artery stenosis s/p stent (patient unsure of location) Renal artery stenosis s/p stent DLP Hypothyroidism Gout Breast CA s/p L mastectomy GERD DVT prophylaxis COMPLICATIONS/CHIEF COMPLAINT: Light-headedness HISTORY OF PRESENT ILLNESS: Patient is an 83-year-old female with a PMHx of CAD s/p stent, Carotid artery stenosis s/p stent (patient unsure of location), Renal artery stenosis s/p stent, Hypothyroidism, Gout, Breast CA s/p L mastectomy, GERD who presented to the emergency room after experiencing lightheadedness. Patient reported that 5 days ago she was walking within her house and experienced the sudden onset of sharp pain extending from her left jaw up into her ear that lasted a few seconds, but she rated as a 20/10, electric/sharp pain. Patient reported that she felt dizzy since that point. She described the dizziness as a feeling of passing out and not a feeling of the room spinning. Patient reported that she sat in a chair most of the day with the symptoms of light-headedness. She has come to the ER after 5 days because she was concerned it did not resolve. Patient was admitted to hospitalist service for further evaluation and treatment. HOSPITAL COURSE: Light-headedness - possibly 2/2 vascular etiology, less likely 2/2 orthostatic hypotension - Patient describes symptoms of lightheadedness; continues to experience mild symptoms - Patient began to experience these symptoms 5 days ago after she experienced sharp pain in her jaw - Remains hemodynamically stable and afebrile, Orthostatic vital signs negative - Lab work is without any significant findings; ESR not significantly elevated; CRP mildly elevated - Imaging above noted - Vascular surgery, Dr. Onofre on consultation; appreciate their input - will have outpatient follow up and continue with medical management (added Plavix) - c/w telemetry monitoring - Has cleared PT / OT CAD s/p stent - c/w ASA Carotid artery stenosis s/p stent (patient unsure of location) - c/w ASA Renal artery stenosis s/p stent - c/w ASA DLP - c/w Pravastatin Hypothyroidism - c/w Levothyroxine Gout - c/w Allopurinol Breast CA s/p L mastectomy GERD - c/w Omeprazole and Sucralfate DVT prophylaxis - c/w TEDs / Sequentials DISCHARGE MEDICATIONS: Please see below. ALLERGIES: Please see below. PHYSICAL EXAMINATION ON DISCHARGE: Vitals (See below) General: Lying in bed, no acute distress, comfortable, AAOx3 HEENT: NC, AT CVS: +S1S2 Lungs: Fair air entry b/l, auscultation is without rhonchi / rales / wheezing Abdomen: Soft, non-distended / non-tender Extremities: No signs of LE edema, - Calf tenderness LABORATORY DATA: Please see below. IMAGING: - CT head 02/02: 1. Moderate diffuse atrophy with proportionate ventriculomegaly, age appropriate and stable. 2. No acute infarct, intracranial hemorrhage, mass or mass effect. There are chronic small vessel white matter ischemic changes present. 3. No sinus or mastoid abnormality and no fracture or focal lesion of the skull base or calvarium. - CXR 02/02: 1. Cardiomegaly without pulmonary edema, effusion or acute infiltrate. 2. Large hiatal hernia. 3. No acute infiltrate or effusion. 4. Left mastectomy and axillary lymph node dissection noted. Bones demineralized. - MRA Carotid 02/02: 1. Focal atherosclerotic versus thrombotic versus embolic mild stenosis of the distal left common carotid artery. The filling defect does extend into the origin of the left external carotid artery causing near occlusion. CTA of the neck could be obtained for further characterization. 2. Right carotid bulb atherosclerotic plaque causing moderate approximate 40% stenosis. - MRA Brain 02/02: 1. No major proximal vessel branch occlusion seen. 2. There may be a tiny 1-2 mm left paraclinoid ICA aneurysm. - MRI Brain 02/02: 1. No acute intracranial abnormality seen. 2. 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 - Carotid Duplex 02/03: This suggests there is less than 50% narrowing bilaterally. There is no significant stenosis by ultrasound. However, there are significant ultrasound limitations as described. Depending on symptomatology consider CTA for further evaluation. ACTIVITY: [As tolerated]. DISCHARGE PLAN: Follow up with Dr. Presley Campos within [address] Onofre within 6 months Remain compliant with treatment plan and medications Return to the ER if you experience any problems DISPOSITION: Home DISCHARGE CONDITION: [Stable]. TIME SPENT ON DISCHARGE: 25 minutes Vital Signs/I&Os Vital Signs Date Time Temp Pulse Resp B/P (MAP) Pulse Ox O2 Delivery O2 Flow Rate FiO2 02/04/19 08:00 97.0 56 18 146/67 (93) 100 02/02/19 18:30 Room Air I&O- Last 24 Hours up to 6 AM 02/04/19 06:00 Intake Total 540 ml Output Total 500 ml Balance 40 ml Microbiology Microbiology 02/02/19 Gastrointestinal Tract Panel (PCR) - Final, Complete Discharge Medications Scheduled Allopurinol (Allopurinol) 100 Mg Tablet, 100 MG PO QHS, (Reported) Amlodipine Besylate (Amlodipine Besylate) 5 Mg Tablet, 5 MG PO QHS, (Reported) Aspirin (Aspir 81) 81 Mg Tablet.dr, 81 MG PO QHS, (Reported) Clopidogrel Bisulfate (Plavix) 75 Mg Tablet, 1 TAB PO DAILY Ferrous Sulfate (Ferrous Sulfate) 325 Mg Tablet.dr, 325 MG PO QHS, (Reported) Levothyroxine Sodium (Unithroid) 75 Mcg Tablet, 75 MCG PO QAM, (Reported) Multivitamin (Multivitamins) 1 Each Capsule, 1 CAP PO QHS, (Reported) Pantoprazole Sodium (Protonix) 20 Mg Tablet.dr, 20 MG PO DAILY Pravastatin Sodium (Pravastatin Sodium) 80 Mg Tablet, 80 MG PO QHS, (Reported) Scheduled PRN Acetaminophen (Acetaminophen 8 Hour) 650 Mg Tablet.er, 1,300 MG PO Q8H PRN for PAIN, (Reported) Sucralfate (Sucralfate) 1 Gm Tablet, 1 GM PO DAILY PRN for LEAKY GUT, (Reported) ONLY USES WHEN EATING "BAD" FOOD Allergies Coded Allergies: butorphanol (Verified Allergy, Severe, DYSPNEA, 02/02/19) hydralazine (Verified Allergy, Severe, DYSPNEA, 02/02/19) pentazocine (Verified Allergy, Severe, RASH,DYSPNEA, 02/02/19) Penicillins (Verified Allergy, Intermediate, RASH, 02/02/19) Sulfa (Sulfonamide Antibiotics) (Verified Allergy, Intermediate, RASH, 02/02/19) codeine (Verified Allergy, Intermediate, PRURITIS, HALLUCINATIONS, 02/02/19) lisinopril (Verified Allergy, Intermediate, INCREASED K, 02/02/19) meperidine (Verified Allergy, Intermediate, RASH, 02/02/19) morphine (Verified Allergy, Intermediate, PRURITIS, 02/02/19) atorvastatin (Verified Adverse Reaction, Severe, RHABDOMYOLYSIS, 02/02/19) hydrochlorothiazide (Verified Adverse Reaction, Intermediate, INCREASED K WITH LISINOPRIL, 02/02/19) clonidine (Verified Adverse Reaction, Mild, DRY MOUTH, 02/02/19) IRIS NEGRON MD Feb 04, 2019 11:16
== END 2019-02-04 11:55 | disposition home or self-care (01) ==
LOC: M ED 10:42 → M ED INP 10:43 → M PCU 18:47
PROVIDERS: ADMIT Internal Medicine; ATTEND Internal Medicine
DX: R42 Dizziness and giddiness (principal); I25.10 Atherosclerotic heart disease of native coronary artery without angina pectoris; Z98.61 Coronary angioplasty status; I65.29 Occlusion and stenosis of unspecified carotid artery; E78.49 Other hyperlipidemia; I70.1 Atherosclerosis of renal artery; E03.9 Hypothyroidism, unspecified; M10.9 Gout, unspecified; Z85.3 Personal history of malignant neoplasm of breast; Z90.12 Acquired absence of left breast and nipple; K21.9 Gastro-esophageal reflux disease without esophagitis; Z79.82 Long term (current) use of aspirin; Z79.899 Other long term (current) drug therapy; Z88.0 Allergy status to penicillin; Z88.2 Allergy status to sulfonamides; Z88.5 Allergy status to narcotic agent; Z88.8 Allergy status to other drugs, medicaments and biological substances; Z87.891 Personal history of nicotine dependence
CPT/HCPCS: 70450; 70544; 70547; 70551; 71045; 80048; 80076; 81001; 82550; 82553; 84443; 84484; 85025; 85652; 86140; 87507; 93005; 93041; 93880; 97116; 97161; 99285; G0378

== ENCOUNTER → 2019-04-28 | Outpatient (CLI) | payer MEDICARE ==
[~2019-04-28] MED LIST changes: +ASPI81TA85 PO; +FERR325T3 PO; +MULTCAP PO; +OMEP20.6 PO; +PLAV1TAB2 PO; +PRAV80TA2 PO; +PROT20TA11 PO; +QC A650T3 PO; +SUCR1TAB56 PO; +UNIT1TAB PO; +ZYLO300T6 PO
== END ==
LOC: M WHC 10:22
PROVIDERS: ATTEND Internal Medicine
DX: Z53.9 Procedure and treatment not carried out, unspecified reason (principal)

== ENCOUNTER 2021-10-15 18:46 | Inpatient (IN) | payer MEDICARE ==
[~2021-10-15] VITALS: Ht 149.9 cm; Wt 64.6 kg
[~2021-10-15 18:46] MED LIST changes: +AMLO1TAB24 PO; -AMLO5TAB6 PO; -ASPI81TA85 PO; +ASPI81TA86 PO
[2021-10-15] MEDS ORDERED: ONDANSETRON 4MG/2ML VIAL IV ONE (19:10)
[2021-10-15] MEDS ORDERED: NS 1,000 ML IV ONE ×2 (19:10→21:45)
[2021-10-15 19:37] LABS: BASO % 0.2 % (0.0-1.0); EOS % 0.7 % (0.0-3.0); HEMATOCRIT 40.9 % (36.0-47.0); HEMOGLOBIN 13.2 g/dl (12.0-15.5); LYMPH # 1.2 10^3/uL (1.5-5.0); LYMPH % 19.2 % (24.0-44.0); MEAN CORPUSCULAR HEMOGLOBIN 28.8 pg (27.0-33.0); MEAN CORPUSCULAR HGB CONC 32.3 g/dl (32.0-36.5); MEAN CORPUSCULAR VOLUME 89.1 fl (80.0-96.0); MONO # 1.4 10^3/uL (0.0-0.8); MONO % 23.6 % (2.0-8.0); NEUTROPHILS # 3.4 10^3/uL (1.5-8.5); NEUTROPHILS % 55.6 % (36.0-66.0); PLATELET COUNT, AUTOMATED 223 10^3/uL (150-450); RED BLOOD COUNT 4.59 10^6/uL (4.00-5.40); WHITE BLOOD COUNT 6.1 10^3/uL (4.0-10.0)
[2021-10-15 19:56] LABS: CK-MB VALUE MASS < 1.0 NG/ML (<3.6); CPK CREATINE PHOSPHOKINASE 80 U/L (26-192); MB/CK RELATIVE INDEX 1.25 (< OR =4)
[2021-10-15 20:22] LABS: ALBUMIN 3.7 GM/DL (3.2-5.2); ALT/SGPT 17 U/L (12-78); BILIRUBIN,DIRECT 0.2 MG/DL (0.0-0.2); BILIRUBIN,TOTAL 0.8 MG/DL (0.2-1.0); BLOOD UREA NITROGEN 12 MG/DL (7-18); CALCIUM LEVEL 9.1 MG/DL (8.8-10.2); CARBON DIOXIDE LEVEL 28 MEQ/L (21-32); CHLORIDE LEVEL 107 MEQ/L (98-107); GLOMERULAR FILTRATION RATE > 60.0 (>32); GLUCOSE, FASTING 106 MG/DL (70-100); LIPASE 200 U/L (73-393); POTASSIUM SERUM 4.6 MEQ/L (3.5-5.1); SODIUM LEVEL 140 MEQ/L (136-145); TOTAL PROTEIN 7.8 GM/DL (6.4-8.2)
[2021-10-15 20:46] LABS: CK-MB VALUE MASS 1.2 NG/ML (<3.6); MB/CK RELATIVE INDEX 2.67 (< OR =4)
[2021-10-15 21:36] LABS: RSV AMPLIFICATION NEGATIVE (NEGATIVE)
[2021-10-15] MEDS ORDERED: MECLIZINE 25 MG TABLET PO ONE (21:45)
[2021-10-15] MEDS ORDERED: MOM 30ML SUSPENSION UDC PO PRN (21:45)
[2021-10-15] MEDS ORDERED: MAALOX 30 ML SUSP *UDC PO PRN (21:45)
[2021-10-15 22:29] LABS: INR 1.04
[2021-10-15 23:14] VITALS: BP 188/82
[2021-10-15 23:15] VITALS: BP 113/68
[2021-10-15 23:19] VITALS: BP 195/82
[2021-10-15 23:35] VITALS: BP 188/82
[2021-10-16] VITALS (7 sets, daily range): BP systolic 137–194; BP diastolic 58–140
[2021-10-16] MEDS ORDERED: atenoloL 25 MG TAB PO ONE (04:05)
[2021-10-16 07:33] LABS: HEMATOCRIT 37.3 % (36.0-47.0); HEMOGLOBIN 11.9 g/dl (12.0-15.5); MEAN CORPUSCULAR HEMOGLOBIN 28.1 pg (27.0-33.0); MEAN CORPUSCULAR HGB CONC 31.9 g/dl (32.0-36.5); MEAN CORPUSCULAR VOLUME 88.2 fl (80.0-96.0); PLATELET COUNT, AUTOMATED 165 10^3/uL (150-450); RED BLOOD COUNT 4.23 10^6/uL (4.00-5.40); WHITE BLOOD COUNT 4.1 10^3/uL (4.0-10.0)
[2021-10-16 08:02] LABS: BLOOD UREA NITROGEN 9 MG/DL (7-18); CARBON DIOXIDE LEVEL 26 MEQ/L (21-32); CHLORIDE LEVEL 113 MEQ/L (98-107); CREATININE FOR GFR 0.74 MG/DL (0.55-1.30); GLOMERULAR FILTRATION RATE > 60.0 (>32); GLUCOSE, FASTING 98 MG/DL (70-100); MAGNESIUM LEVEL 2.2 MG/DL (1.8-2.4); POTASSIUM SERUM 3.3 MEQ/L (3.5-5.1); SODIUM LEVEL 145 MEQ/L (136-145)
[2021-10-16] MEDS: ASPIRIN 81MG ENTERIC TABLET PO SCH ×2 (09:00→11:33)
[2021-10-16] MEDS: DOCUSATE SODIUM 100MG CAPSULE PO SCH ×2 (09:00→20:36)
[2021-10-16] MEDS: ENOXAPARIN 40MG/0.4ML SYRINGE (J1650 PER 10MG) SC SCH (09:17)
[2021-10-16] MEDS: amLODIPine 5 MG TAB PO SCH (09:17)
[2021-10-16] MEDS ORDERED: POTASSIUM CHLORIDE 10MEQ SR TABLET PO ONE (10:10)
[2021-10-16] MEDS ORDERED: ASPI81TA26 PO (10:52)
[2021-10-16] MEDS ORDERED: PANT20TA6 PO (10:52)
[2021-10-16] MEDS ORDERED: CLOP75TA2 PO (10:52)
[2021-10-16] MEDS ORDERED: HOME MED LIST COMPLETE! XX SCH (10:55)
[2021-10-16] MEDS: PANTOPRAZOLE 20 MG TAB PO SCH (11:33)
[2021-10-16] MEDS: allopurinoL 100 MG TAB PO SCH (11:34)
[2021-10-16] MEDS: ACETAMINOPHEN TAB 650MG DOSE (2X325MG) PO PRN (16:59)
[2021-10-16] MEDS: PRAVASTATIN 20 MG TAB PO SCH (20:36)
[2021-10-16] MEDS ORDERED: LIDOCAINE 5% (LIDODERM) PATCH TD PRN (21:15)
[2021-10-17 04:00] VITALS: BP 150/69
[2021-10-17] MEDS: LEVOTHYROXINE 75MCG TABLET (0.075MG) PO SCH (05:48)
[2021-10-17 06:30] LABS: BASO % 0.5 % (0.0-1.0); EOS % 0.7 % (0.0-3.0); HEMATOCRIT 42.1 % (36.0-47.0); HEMOGLOBIN 13.4 g/dl (12.0-15.5); LYMPH # 1.1 10^3/uL (1.5-5.0); LYMPH % 17.6 % (24.0-44.0); MEAN CORPUSCULAR HEMOGLOBIN 28.2 pg (27.0-33.0); MEAN CORPUSCULAR HGB CONC 31.8 g/dl (32.0-36.5); MEAN CORPUSCULAR VOLUME 88.6 fl (80.0-96.0); MONO # 1.5 10^3/uL (0.0-0.8); MONO % 25.3 % (2.0-8.0); NEUTROPHILS # 3.1 10^3/uL (1.5-8.5); NEUTROPHILS % 52.4 % (36.0-66.0); PLATELET COUNT, AUTOMATED 202 10^3/uL (150-450); RED BLOOD COUNT 4.75 10^6/uL (4.00-5.40)
[2021-10-17] MEDS: ACETAMINOPHEN TAB 650MG DOSE (2X325MG) PO PRN ×2 (06:47→15:09)
[2021-10-17 07:09] LABS: BLOOD UREA NITROGEN 11 MG/DL (7-18); CALCIUM LEVEL 8.8 MG/DL (8.8-10.2); CARBON DIOXIDE LEVEL 28 MEQ/L (21-32); CHLORIDE LEVEL 107 MEQ/L (98-107); CREATININE FOR GFR 0.91 MG/DL (0.55-1.30); GLOMERULAR FILTRATION RATE > 60.0 (>32); GLUCOSE, FASTING 101 MG/DL (70-100); POTASSIUM SERUM 4.3 MEQ/L (3.5-5.1); SODIUM LEVEL 139 MEQ/L (136-145)
[2021-10-17 08:01] VITALS: BP 120/58
[2021-10-17] MEDS: allopurinoL 100 MG TAB PO SCH (08:05)
[2021-10-17] MEDS: ENOXAPARIN 40MG/0.4ML SYRINGE (J1650 PER 10MG) SC SCH (08:05)
[2021-10-17] MEDS: PANTOPRAZOLE 20 MG TAB PO SCH (08:05)
[2021-10-17] MEDS: DOCUSATE SODIUM 100MG CAPSULE PO SCH ×2 (08:06→20:00)
[2021-10-17] MEDS: amLODIPine 5 MG TAB PO SCH (08:07)
[2021-10-17] MEDS: ASPIRIN 81MG ENTERIC TABLET PO SCH (08:07)
[2021-10-17 12:24] VITALS: BP_SYST 124; BP_SYST 127; BP_SYST 157; BP_DIAS 57; BP_DIAS 58; BP_DIAS 70
[2021-10-17 16:20] VITALS: BP 138/62
[2021-10-17 20:00] VITALS: BP_SYST 119; BP_SYST 142; BP_SYST 153; BP_DIAS 62; BP_DIAS 63; BP_DIAS 65
[2021-10-17] MEDS: PRAVASTATIN 20 MG TAB PO SCH (20:00)
[2021-10-17] MEDS ORDERED: **NOTE PATIENT COMMENT** MISC XX SCH (21:00)
[2021-10-18] MEDS: LEVOTHYROXINE 75MCG TABLET (0.075MG) PO SCH (05:41)
[2021-10-18 08:02] LABS: BASO % 0.2 % (0.0-1.0); EOS # 0.1 10^3/uL (0.0-0.5); HEMATOCRIT 38.7 % (36.0-47.0); HEMOGLOBIN 12.3 g/dl (12.0-15.5); LYMPH % 19.9 % (24.0-44.0); MEAN CORPUSCULAR HEMOGLOBIN 28.7 pg (27.0-33.0); MEAN CORPUSCULAR HGB CONC 31.8 g/dl (32.0-36.5); MEAN CORPUSCULAR VOLUME 90.4 fl (80.0-96.0); MONO # 1.1 10^3/uL (0.0-0.8); MONO % 22.4 % (2.0-8.0); NEUTROPHILS # 2.6 10^3/uL (1.5-8.5); NEUTROPHILS % 55.5 % (36.0-66.0); PLATELET COUNT, AUTOMATED 169 10^3/uL (150-450); RED BLOOD COUNT 4.28 10^6/uL (4.00-5.40); WHITE BLOOD COUNT 4.8 10^3/uL (4.0-10.0)
[2021-10-18 08:25] LABS: BLOOD UREA NITROGEN 14 MG/DL (7-18); CALCIUM LEVEL 9.1 MG/DL (8.8-10.2); CARBON DIOXIDE LEVEL 27 MEQ/L (21-32); CHLORIDE LEVEL 109 MEQ/L (98-107); CREATININE FOR GFR 0.85 MG/DL (0.55-1.30); GLOMERULAR FILTRATION RATE > 60.0 (>32); GLUCOSE, FASTING 102 MG/DL (70-100); MAGNESIUM LEVEL 2.5 MG/DL (1.8-2.4); POTASSIUM SERUM 4.2 MEQ/L (3.5-5.1); SODIUM LEVEL 142 MEQ/L (136-145)
[2021-10-18] MEDS: ASPIRIN 81MG ENTERIC TABLET PO SCH (08:38)
[2021-10-18] MEDS: ENOXAPARIN 40MG/0.4ML SYRINGE (J1650 PER 10MG) SC SCH (08:39)
[2021-10-18] MEDS: DOCUSATE SODIUM 100MG CAPSULE PO SCH (08:39)
[2021-10-18] MEDS: allopurinoL 100 MG TAB PO SCH (08:39)
[2021-10-18] MEDS: PANTOPRAZOLE 20 MG TAB PO SCH (08:42)
[2021-10-18] MEDS: ACETAMINOPHEN TAB 650MG DOSE (2X325MG) PO PRN (08:43)
[2021-10-18 08:45] VITALS: BP 146/80
[2021-10-18] MEDS: amLODIPine 5 MG TAB PO SCH (08:45)
[2021-10-18 14:00] VITALS: BP 140/55
== END 2021-10-18 20:00 | disposition home health service (06) | DRG 312 ==
LOC: EDBD 18:46 → M ED 18:46 → M ED INP 18:47 → M PCU 23:06 → M MSPAV 10-17 22:25 → OBSVTOIN 10-18 09:40
PROVIDERS: ADMIT Internal Medicine; ATTEND Internal Medicine
DX: I95.1 Orthostatic hypotension (principal); E03.9 Hypothyroidism, unspecified; I10 Essential (primary) hypertension; I25.10 Atherosclerotic heart disease of native coronary artery without angina pectoris; K21.9 Gastro-esophageal reflux disease without esophagitis; M10.9 Gout, unspecified; Z85.3 Personal history of malignant neoplasm of breast; Z95.2 Presence of prosthetic heart valve; Z79.899 Other long term (current) drug therapy; Z88.0 Allergy status to penicillin; Z88.2 Allergy status to sulfonamides; Z88.8 Allergy status to other drugs, medicaments and biological substances; Z88.5 Allergy status to narcotic agent; Z98.41 Cataract extraction status, right eye; Z98.42 Cataract extraction status, left eye; Z96.653 Presence of artificial knee joint, bilateral

== ENCOUNTER 2021-11-21 09:46 | Observation (INO) | payer MEDICARE ==
[~2021-11-21] VITALS: Ht 149.9 cm; Wt 62.7 kg
[~2021-11-21 09:46] MED LIST changes: +ASPI81TA26 PO; +CLOP75TA2 PO; +PANT20TA6 PO
[2021-11-21 10:24] LABS: BASO % 0.2 % (0.0-1.0); EOS % 0.4 % (0.0-3.0); HEMATOCRIT 43.2 % (36.0-47.0); HEMOGLOBIN 13.8 g/dl (12.0-15.5); LYMPH % 17.5 % (24.0-44.0); MEAN CORPUSCULAR HEMOGLOBIN 29.4 pg (27.0-33.0); MEAN CORPUSCULAR HGB CONC 31.9 g/dl (32.0-36.5); MEAN CORPUSCULAR VOLUME 91.9 fl (80.0-96.0); MONO % 17.7 % (2.0-8.0); NEUTROPHILS # 3.5 10^3/uL (1.5-8.5); NEUTROPHILS % 62.6 % (36.0-66.0); PLATELET COUNT, AUTOMATED 255 10^3/uL (150-450); WHITE BLOOD COUNT 5.6 10^3/uL (4.0-10.0)
[2021-11-21 10:41] LABS: CK-MB VALUE MASS < 1.0 NG/ML (<3.6); CPK CREATINE PHOSPHOKINASE 57 U/L (26-192); MB/CK RELATIVE INDEX 1.75 (< OR =4)
[2021-11-21 10:54] LABS: ALBUMIN 3.5 GM/DL (3.2-5.2); ALT/SGPT 15 U/L (12-78); BILIRUBIN,DIRECT < 0.1 MG/DL (0.0-0.2); BILIRUBIN,TOTAL 0.5 MG/DL (0.2-1.0); BLOOD UREA NITROGEN 13 MG/DL (7-18); CALCIUM LEVEL 9.4 MG/DL (8.8-10.2); CARBON DIOXIDE LEVEL 28 MEQ/L (21-32); CHLORIDE LEVEL 111 MEQ/L (98-107); CREATININE FOR GFR 0.88 MG/DL (0.55-1.30); GLOMERULAR FILTRATION RATE > 60.0 (>32); GLUCOSE, FASTING 112 MG/DL (70-100); POTASSIUM SERUM 4.5 MEQ/L (3.5-5.1); SODIUM LEVEL 144 MEQ/L (136-145); TOTAL PROTEIN 7.4 GM/DL (6.4-8.2)
[2021-11-21] MEDS ORDERED: MECLIZINE 25 MG TABLET PO ONE (12:30)
[2021-11-21] MEDS ORDERED: NS 1,000 ML IV ONE (12:55)
[2021-11-21 15:12] LABS: CK-MB VALUE MASS 1.7 NG/ML (<3.6); MB/CK RELATIVE INDEX 2.07 (< OR =4)
[2021-11-21] MEDS ORDERED: ENALAPRILAT INJ 2.5MG/2ML VIAL IV PRN (17:45)
[2021-11-21] MEDS ORDERED: HOME MED LIST COMPLETE! XX SCH (19:00)
[2021-11-21 20:10] LABS: RSV AMPLIFICATION NEGATIVE (NEGATIVE)
[2021-11-21 23:51] VITALS: BP 124/67
[2021-11-21 23:54] VITALS: BP 167/73
[2021-11-22] VITALS (7 sets, daily range): BP systolic 123–167; BP diastolic 57–75
[2021-11-22] MEDS: amLODIPine 5 MG TAB PO ONE ×2 (00:30→01:04)
[2021-11-22] MEDS: PRAVASTATIN 20 MG TAB PO SCH ×2 (01:04→20:53)
[2021-11-22 05:50] LABS: HEMATOCRIT 39.3 % (36.0-47.0); HEMOGLOBIN 12.8 g/dl (12.0-15.5); MEAN CORPUSCULAR HEMOGLOBIN 29.4 pg (27.0-33.0); MEAN CORPUSCULAR HGB CONC 32.6 g/dl (32.0-36.5); MEAN CORPUSCULAR VOLUME 90.1 fl (80.0-96.0); PLATELET COUNT, AUTOMATED 242 10^3/uL (150-450); RED BLOOD COUNT 4.36 10^6/uL (4.00-5.40); WHITE BLOOD COUNT 5.5 10^3/uL (4.0-10.0)
[2021-11-22 06:19] LABS: BLOOD UREA NITROGEN 10 MG/DL (7-18); CALCIUM LEVEL 9.3 MG/DL (8.8-10.2); CARBON DIOXIDE LEVEL 27 MEQ/L (21-32); CHLORIDE LEVEL 110 MEQ/L (98-107); GLOMERULAR FILTRATION RATE > 60.0 (>32); GLUCOSE, FASTING 102 MG/DL (70-100); POTASSIUM SERUM 3.7 MEQ/L (3.5-5.1); SODIUM LEVEL 143 MEQ/L (136-145)
[2021-11-22] MEDS: LEVOTHYROXINE 75MCG TABLET (0.075MG) PO SCH (06:32)
[2021-11-22] MEDS ORDERED: CLOPIDOGREL 75 MG TAB PO SCH (09:00)
[2021-11-22] MEDS: ASPIRIN 81 MG CHEW TABLET PO SCH (09:30)
[2021-11-22] MEDS: ACETAMINOPHEN TAB 650MG DOSE (2X325MG) PO PRN (09:30)
[2021-11-22] MEDS: amLODIPine 5 MG TAB PO SCH (09:31)
[2021-11-22] MEDS ORDERED: LR 500 ML IV SCH (11:50)
[2021-11-22] MEDS ORDERED: LR 500 ML IV ONE (12:19)
[2021-11-22] MEDS: LOSARTAN 25 MG TAB PO SCH (13:13)
[2021-11-22] MEDS: allopurinoL 100 MG TAB PO SCH (20:53)
[2021-11-22] MEDS: PANTOPRAZOLE 20 MG TAB PO SCH (20:53)
[2021-11-23] VITALS (7 sets, daily range): BP systolic 104–138; BP diastolic 53–65
[2021-11-23 06:18] LABS: HEMATOCRIT 39.2 % (36.0-47.0); HEMOGLOBIN 12.7 g/dl (12.0-15.5); MEAN CORPUSCULAR HEMOGLOBIN 28.9 pg (27.0-33.0); MEAN CORPUSCULAR HGB CONC 32.4 g/dl (32.0-36.5); MEAN CORPUSCULAR VOLUME 89.1 fl (80.0-96.0); PLATELET COUNT, AUTOMATED 254 10^3/uL (150-450); WHITE BLOOD COUNT 6.1 10^3/uL (4.0-10.0)
[2021-11-23] MEDS: LEVOTHYROXINE 75MCG TABLET (0.075MG) PO SCH (06:18)
[2021-11-23 06:44] LABS: CALCIUM LEVEL 9.2 MG/DL (8.8-10.2); CREATININE FOR GFR 1.08 MG/DL (0.55-1.30); POTASSIUM SERUM 3.9 MEQ/L (3.5-5.1)
[2021-11-23] MEDS: ACETAMINOPHEN TAB 650MG DOSE (2X325MG) PO PRN (07:20)
[2021-11-23] MEDS: ASPIRIN 81 MG CHEW TABLET PO SCH (09:26)
[2021-11-23] MEDS: amLODIPine 5 MG TAB PO SCH (09:26)
[2021-11-23] MEDS: LOSARTAN 25 MG TAB PO SCH (09:26)
[2021-11-23] MEDS ORDERED: ISOVUE-370 76% 100ML VIAL As Ordered ONE (10:08)
[2021-11-23] MEDS: PRAVASTATIN 20 MG TAB PO SCH (21:00)
[2021-11-23] MEDS: allopurinoL 100 MG TAB PO SCH (21:00)
[2021-11-23] MEDS: PANTOPRAZOLE 20 MG TAB PO SCH (21:00)
[2021-11-24] VITALS: BP 125/60
[2021-11-24 04:00] VITALS: BP 125/60
[2021-11-24] MEDS: LEVOTHYROXINE 75MCG TABLET (0.075MG) PO SCH (06:12)
[2021-11-24] MEDS: ACETAMINOPHEN TAB 650MG DOSE (2X325MG) PO PRN (06:23)
[2021-11-24 06:36] LABS: CALCIUM LEVEL 9.2 MG/DL (8.8-10.2); CREATININE FOR GFR 1.12 MG/DL (0.55-1.30); GLOMERULAR FILTRATION RATE 48.9 (>32); POTASSIUM SERUM 4.1 MEQ/L (3.5-5.1)
[2021-11-24 07:28] VITALS: BP 148/66
[2021-11-24 08:48] VITALS: BP 148/66
[2021-11-24] MEDS: amLODIPine 5 MG TAB PO SCH (08:48)
[2021-11-24] MEDS: ASPIRIN 81 MG CHEW TABLET PO SCH (08:48)
[2021-11-24] MEDS: LOSARTAN 25 MG TAB PO SCH (08:48)
== END 2021-11-24 10:55 | disposition home or self-care (01) ==
LOC: M ED 09:46 → M ED INP 17:10 → M PCU 23:45
PROVIDERS: ADMIT Internal Medicine; ATTEND Student in an Organized Health Care Education/Training Program
DX: R55 Syncope and collapse (principal); I16.0 Hypertensive urgency; I25.10 Atherosclerotic heart disease of native coronary artery without angina pectoris; I65.29 Occlusion and stenosis of unspecified carotid artery; I70.1 Atherosclerosis of renal artery; H81.10 Benign paroxysmal vertigo, unspecified ear; E03.9 Hypothyroidism, unspecified; M10.9 Gout, unspecified; M79.89 Other specified soft tissue disorders; Z85.3 Personal history of malignant neoplasm of breast; Z90.12 Acquired absence of left breast and nipple; Z98.61 Coronary angioplasty status; Z79.899 Other long term (current) drug therapy; Z79.82 Long term (current) use of aspirin; Z79.890 Hormone replacement therapy; Z88.0 Allergy status to penicillin; Z88.2 Allergy status to sulfonamides; Z88.5 Allergy status to narcotic agent; Z88.8 Allergy status to other drugs, medicaments and biological substances; Z95.828 Presence of other vascular implants and grafts; Z96.653 Presence of artificial knee joint, bilateral; Z98.41 Cataract extraction status, right eye; Z98.42 Cataract extraction status, left eye; Z90.49 Acquired absence of other specified parts of digestive tract; Z90.89 Acquired absence of other organs; Z87.891 Personal history of nicotine dependence
CPT/HCPCS: 36415; 70450; 70496; 70498; 71045; 80048; 80076; 82550; 82553; 84443; 84484; 85025; 85027; 87631; 93005; 93041; 93880; 93971; 94760; 96360; 96361; 97112; 97116; 97161; 97165; 97530; 97535; 99285; G0378; Q9967

== ENCOUNTER 2023-01-15 14:04 | Emergency (ER) | payer MEDICARE ==
[~2023-01-15] VITALS: Ht 149.9 cm; Wt 63.6 kg
[~2023-01-15 14:04] MED LIST changes: +CLOP75TA99 PO; -PLAV1TAB2 PO
[2023-01-15] MEDS ORDERED: LIDOCAINE 2% MDV 20ML VIAL SC ONE (18:00)
[2023-01-15] MEDS ORDERED: BOOSTRIX VACCINE (TETANUS/DIPHTH/ACEL. PERTUSSIS) 0.5ML SYR IM ONE (18:00)
[2023-01-15 19:05] VITALS: BP 160/74; TEMP 98; O2SAT 97
== END 2023-01-15 19:06 | disposition home or self-care (01) ==
LOC: EDBD 14:04 → M ED 14:04
DX: S61.213A Laceration without foreign body of left middle finger without damage to nail, initial encounter (principal); S60.222A Contusion of left hand, initial encounter; W19.XXXA Unspecified fall, initial encounter; F41.9 Anxiety disorder, unspecified; E11.9 Type 2 diabetes mellitus without complications; K21.9 Gastro-esophageal reflux disease without esophagitis; I10 Essential (primary) hypertension; E78.5 Hyperlipidemia, unspecified; Z86.79 Personal history of other diseases of the circulatory system; Z86.711 Personal history of pulmonary embolism; Z88.0 Allergy status to penicillin; Z88.2 Allergy status to sulfonamides; Z88.8 Allergy status to other drugs, medicaments and biological substances; Z79.82 Long term (current) use of aspirin; Z79.899 Other long term (current) drug therapy; Z23 Encounter for immunization